=== PATIENT | male | born 1930 | race Caucasian/White ===

== ENCOUNTER → 2017-10-31 | Outpatient (CLI) | payer OTHER | END | disposition home or self-care (01) | LOC: ECHO 14:03 | DX: I25.110 Atherosclerotic heart disease of native coronary artery with unstable angina pectoris (principal); I08.0 Rheumatic disorders of both mitral and aortic valves | CPT/HCPCS: 93306 ==

== ENCOUNTER → 2017-11-07 | Outpatient (CLI) | payer OTHER ==
[~2017-11-07] MED LIST: 0.9 % SODIUM CHLORIDE 10 ML DISP.SYRIN. IV; ACETAMINOPHEN 325 MG TABLET. PO; ASPIRIN 325 MG TABLET; BIVALIRUDIN 250 MG VIAL. IV; CLOPIDOGREL BISULFATE 75 MG TABLET; HEPARIN for IV BOLUS 10,000 UNIT/10 ML VIAL.; IODIXANOL 320 MG/ML 100 ML VIAL.; IV 1/2 NORMAL SALINE 1,000 ML IV; LIDOCAINE 2% 20 ML VIAL.; MIDAZOLAM HCL/PF 2 MG/2 ML VIAL.; NITROGLYCERIN 200 MCG/2 ML SYRINGE FOR CATH/VASC LAB.; NITROGLYCERIN SUBLINGUAL 0.4 MG BOTTLE OF 25. SL; VERAPAMIL 5 MG/2 ML VIAL.; fentaNYL PF VIAL 100 MCG/2 ML VIAL
[2017-11-07 07:06] LABS: HEMATOCRIT 41.2 % (39.0-53.0); HEMOGLOBIN 13.9 g/dL (13.0-17.5); MEAN CORPUSCULAR HEMOGLOBIN 32 pg (25-35); MEAN CORPUSCULAR HGB CONC 34 g/dL (31-37); MEAN CORPUSCULAR VOLUME 95 fL (79-100); PLATELET COUNT 261 x10^3/uL (140-400); RED BLOOD COUNT 4.33 x10^6/uL (4.30-5.70); WHITE BLOOD COUNT 6.8 x10^3/uL (4.0-11.0)
[2017-11-07 07:14] LABS: PROTHROMBIN TIME PATIENT 12.9 SEC (11.7-14.0)
[2017-11-07 07:28] LABS: ANION GAP 9 (6-14); BLOOD UREA NITROGEN 27 mg/dL (8-26); CALCIUM 8.9 mg/dL (8.5-10.1); CARBON DIOXIDE 26 mmol/L (21-32); CHLORIDE 108 mmol/L (98-107); GFR 70.8; GLUCOSE 89 mg/dL (70-99); POTASSIUM 4.1 mmol/L (3.5-5.1); SODIUM 143 mmol/L (136-145)
[2017-11-07] MEDS: IODIXANOL 320 MG/ML 100 ML VIAL. IART (09:33)
[2017-11-07] MEDS: MIDAZOLAM HCL/PF 2 MG/2 ML VIAL. IV (09:34)
[2017-11-07] MEDS: BIVALIRUDIN 250 MG VIAL. IV (09:34)
[2017-11-07] MEDS: LIDOCAINE 2% 20 ML VIAL. IJ (09:34)
[2017-11-07] MEDS: VERAPAMIL 5 MG/2 ML VIAL. IART (09:34)
[2017-11-07] MEDS: ASPIRIN 325 MG TABLET PO (09:35)
[2017-11-07] MEDS: CLOPIDOGREL BISULFATE 75 MG TABLET PO (09:35)
[2017-11-07] MEDS: HEPARIN for IV BOLUS 10,000 UNIT/10 ML VIAL. IART (09:35)
[2017-11-07] MEDS: fentaNYL PF VIAL 100 MCG/2 ML VIAL IV (09:35)
[2017-11-07] MEDS: NITROGLYCERIN 200 MCG/2 ML SYRINGE FOR CATH/VASC LAB. IART (09:35)
== END | disposition home or self-care (01) ==
LOC: CCL 06:40
DX: I25.110 Atherosclerotic heart disease of native coronary artery with unstable angina pectoris (principal); Z79.82 Long term (current) use of aspirin; Z79.899 Other long term (current) drug therapy; I10 Essential (primary) hypertension; M19.90 Unspecified osteoarthritis, unspecified site; M10.9 Gout, unspecified; I47.1 Supraventricular tachycardia; E78.5 Hyperlipidemia, unspecified; Z98.890 Other specified postprocedural states; Z96.652 Presence of left artificial knee joint; Z96.642 Presence of left artificial hip joint; Z80.6 Family history of leukemia
CPT/HCPCS: 36415; 80048; 85027; 85610; 92928; 93458; 99152; 99153; C1769; C1874; C1892; C9600; J0583; J1644; J2250; J3010; J3490

== ENCOUNTER → 2020-04-14 | Outpatient (CLI) | payer MEDICARE ==
[2017-11-07 11:23] VITALS: BP 163/81
[~2020-04-14] MED LIST changes: -0.9 % SODIUM CHLORIDE 10 ML DISP.SYRIN. IV; -ACETAMINOPHEN 325 MG TABLET. PO; +ASPI-482 PO; -ASPIRIN 325 MG TABLET; +ATOR40TA59 PO; -BIVALIRUDIN 250 MG VIAL. IV; +CLOP75TA PO; -CLOPIDOGREL BISULFATE 75 MG TABLET; +GABA300C18 PO; -HEPARIN for IV BOLUS 10,000 UNIT/10 ML VIAL.; -IODIXANOL 320 MG/ML 100 ML VIAL.; -IV 1/2 NORMAL SALINE 1,000 ML IV; -LIDOCAINE 2% 20 ML VIAL.; +LISI-334 PO; +METO-269 PO; -MIDAZOLAM HCL/PF 2 MG/2 ML VIAL.; +NITR0.4T24 SL; -NITROGLYCERIN 200 MCG/2 ML SYRINGE FOR CATH/VASC LAB.; -NITROGLYCERIN SUBLINGUAL 0.4 MG BOTTLE OF 25. SL; +OMEP40CA45 PO; +REGADENOSON 0.4 MG/5 ML DISP.SYRIN. IV ONE; +TAMS0.4C97 PO; +TIZA4TAB2 PO; +TRAM50TA PO; -VERAPAMIL 5 MG/2 ML VIAL.; -fentaNYL PF VIAL 100 MCG/2 ML VIAL
--- NOTE | 2020-04-14 13:05 | CARD ---
MR#: [id number] Date of Study: 04/14/2020 Ordering Physician: SUSHIL SIMPSON, Referring Physician: SUSHIL SIMPSON, Tech: Jalyn Bryantbarbara APPROVED REPORT EXAM: Two-dimensional and M-mode echocardiogram with Doppler and color Doppler. Other Information Quality : AverageHR: 60bpm INDICATION Cardiac Disease: CAD RISK FACTORS Hypertension Hyperlipidemia Smoking 2D DIMENSIONS RVDd3.9 (2.9-3.5cm)Left Atrium(2D)3.4 (1.6-4.0cm) IVSd1.2 (0.7-1.1cm)Aortic Root(2D)3.2 (2.0-3.7cm) LVDd4.3 (3.9-5.9cm)LVOT Diameter2.2 (1.8-2.4cm) PWd1.1 (0.7-1.1cm)LVDs2.9 (2.5-4.0cm) FS (%) 33.4 %SV52.2 ml LVEF(%)62.3 (>50%) Aortic Valve AoV Peak Asaf.166.2cm/sAoV VTI41.6cm AO Peak GR.11.1mmHgLVOT Peak Asaf.68.7cm/s LVOT VTI 18.73cmAO Mean GR.7mmHg ANNA (VMAX)1.49sc2YOV (VTI)1.72cm2 AI P 1/2 Klaf314pm Mitral Valve MV E Hqbewsyt92.5cm/sMV DECEL GDSA866bw MV A Diqrpzsc525.8cm/sMV E Mean Gr.2mmHg MV WQB77fqC/A Ratio0.8 MVA (PHT)4.23cm2 TDI E/Lateral E'15.0E/Medial E'16.2 Pulmonary Valve PV Peak Ianyenbz65.9cm/sPV Peak Grad.3mmHg Tricuspid Valve TR P. Juwrqbpa277cv/sRAP LMXSNMCU8ywOi TR Peak Gr.24tbDmAPZL63fjGy Pulmonary Vein S1 Hlhmsich98.1cm/sD2 Honoqdrm23.5cm/s LEFT VENTRICLE The left ventricle is normal size. There is mild concentric left ventricular hypertrophy. The left ve ntricular systolic function is normal and the ejection fraction is within normal range. The Ejection Fraction is 55%. There is normal LV segmental wall motion. Transmitral Doppler flow pattern is Grade I-abnormal relaxation pattern. RIGHT VENTRICLE The right ventricle is normal size. There is normal right ventricular wall thickness. The right ventr icular systolic function is normal. ATRIA The left atrium size is normal. The right atrium size is normal. The interatrial septum is intact wit h no evidence for an atrial septal defect or patent foramen ovale as noted on 2-D or Doppler imaging. AORTIC VALVE The aortic valve is heavily calcified thickened with restricted leaflet motion. Doppler and Color Bandar w revealed mild aortic regurgitation. Calculated aortic valve area is 1.87 cm2 with maximum pressure gradient of 12 mmHg and mean pressure gradient of 7 mmHg. There is no significant aortic valvular macie nosis. MITRAL VALVE The mitral valve is thickened but opens well. There is no evidence of mitral valve prolapse. There is no mitral valve stenosis. Doppler and Color-flow revealed trace mitral regurgitation. TRICUSPID VALVE The tricuspid valve is normal in structure and function. Doppler and Color Flow revealed trace tricus pid regurgitation with an estimated PAP of 29 mmHg. There is no tricuspid valve stenosis. PULMONIC VALVE The pulmonic valve is not well visualized. Doppler and Color Flow revealed trace to mild pulmonic bj vular regurgitation. There is no pulmonic valvular stenosis. GREAT VESSELS The aortic root is normal in size. The ascending aorta is normal in size. The IVC is normal in size a nd collapses >50% with inspiration. PERICARDIAL EFFUSION There is no evidence of significant pericardial effusion. Critical Notification Critical Value: No <Conclusion> The left ventricular systolic function is normal and the ejection fraction is within normal range. Th e Ejection Fraction is 55%. There is normal LV segmental wall motion. Doppler and Color Flow revealed mild aortic regurgitation. Signed by : Morteza Hahn, Electronically Approved : 04/14/2020 13:04:57
--- NOTE | 2020-04-14 13:42 | RAD ---
MR#: [id number] Date of Study: 04/14/2020 Ordering Physician: SUSHIL SIPMSON, Referring Physician: MADAY AGUIRRE Tech: LUDWIG Potter APPROVED REPORT Test Type: Pharmacological Stress Nurse/Tech: LEXY DAY Test Indications: CAD Cardiac History: HTN, STENTS X 2, SEE EMR Medications: SEE EMR Medical History: SEE EMR Resting ECG: SB W/ 1ST DEGREE AVB Resting Heart Rate: 57 bpm Resting Blood Pressure: 194/84mmHg Nurse/Tech Notes S1,S2, LUNGS CTA, DENIED CP OR SOA. Consent: The procedure was explained to the patient in lay terms. Informed consent was witnessed. Dimitris eout was entered into [employer]. History and Stress Test performed by LUDWIG Potter Pharm. Details Pharmacologic stress testing was performed using 0.4mg per 5ml of regadenoson given intravenously ove r 7-10 seconds. Stress Symptoms PT TOLERATED TEST WITHOUT ANY COMPLAINTS. VSS. DENIED SOA OR CP DURING EXAM. POST EXERCISE Reason for Termination: Infusion complete Max HR: 78 bpm Max Blood Pressure: 178/64mmHg Blood Pressure response to exercise: Normal blood pressure response during stress. Heart Rate response to exercise: NORMAL HEART RATE RESPONSE DURING STRESS. Chest Pain: No. Arrhythmia: No. ST Change: No. INTERPRETATION Stress EKG Conclusion: No evidence of stress induced EKG changes. Imaging Protocol IMAGE PROTOCOL: Rest Tc-99m/stress Tc-99m 1 day Rest: Stress: Viability: Radiopharm.Tc99m ThmhrtugeAn94p Sestamibi Qqty64qDm 32.7mCi Duration 15min. 10min. Img Date 04/14/2020 04/14/2020 Inj-Img Jclv23pif. 60min. Rest Admin Site:IV - Right AntecubitalAdministrator:LUDWIG Potter Stress Admin Site: IV - Right AntecubitalAdministrator: LUDWIG Potter STRESS DATA End Diast. Vol.93.0mlAv. Heart Rate69.0bpm End Syst. Vol.11.0mlCO Index BSA5.6L/min Myocardial Xpno868.0gEject. Buzaayhv15.0% Stress Rates Pk. Fill Rate2.39EDV/secLVtime Pk. Fill 130.11msec Pk. Empty Rate3.77ESV/secLVtime Pk. Abiks849.80msec 1/3 Pk. Fill1.41EDV/sec Stress Scores Regional WT0.00Summed WT2.00 Regional WM0.00Summed WM0.00 The rest and stress images show normal perfusion, normal contraction and thickening. LV Perf. Quant 17 Seg. SSS0.00 17 Seg. SRS0.00 17 Seg. SDS0.00 Stress Defect Extent (% LAD)0.00Rest Defect Extent (% LAD)0.00Rev. Defect Extent (% LAD)0.00 Stress Defect Extent (% LCX) 0.00Rest Defect Extent (% LCX)0.00Rev. Defect Extent (% LCX)0.00 Stress Defect Extent (% RCA)0.00Rest Defect Extent (% RCA)0.00Rev. Defect Extent (% RCA)0.00 Stress Defect Extent (% MIS)0.00Rest Defect Extent (% MIS)0.00Rev. Defect Extent (% MIS)0.00 Other Information Quality:Good Risk Assessment: Low Risk Conclusion 1. No evidence of EKG changes with stress testing. 2. Normal perfusion at stress/rest. 3. Low risk study. 4. EF > 60%. Signed by : Morteza Hahn, Electronically Approved : 04/14/2020 13:41:53
== END | disposition home or self-care (01) ==
LOC: NM 09:31
PROVIDERS: ATTEND Internal Medicine Cardiovascular Disease
DX: I08.8 Other rheumatic multiple valve diseases (principal); I25.10 Atherosclerotic heart disease of native coronary artery without angina pectoris; I10 Essential (primary) hypertension; Z95.5 Presence of coronary angioplasty implant and graft
CPT/HCPCS: 78452; 93017; 93306; A9500; J2785

== ENCOUNTER → 2020-07-27 | Outpatient (CLI) | payer MEDICARE ==
[2017-11-07 11:23] VITALS: BP 163/81
[~2020-07-27] MED LIST changes: -LISI-334 PO; +LISI20TA18 PO; -OMEP40CA45 PO; +OMEP40CA7 PO; -REGADENOSON 0.4 MG/5 ML DISP.SYRIN. IV ONE
--- NOTE | 2020-07-28 00:11 | KCIC ---
EXAM: AP pelvis, AP and lateral views left hip DATE: 07/27/2020 3:51 PM INDICATION: Left side LBP, Left hip pain a few days. Unable to bear weight. COMPARISON: No Prior FINDINGS: Marked osteopenia. Changes of right total hip arthroplasty, in good alignment without definite hardwa re complication or fracture. Left hip joint space is preserved. Chondrocalcinosis. No acute fracture or dislocation. Formerly of the left inferior pubic ramus likely from old fracture. Osteopenia. Vance ectomy changes lower lumbar spine with underlying lumbar spine degenerative change. SI joint degenera tive change. Vascular calcifications are seen. IMPRESSION: 1. Within the constraints of osteopenia, no evidence for acute fracture or dislocation. There is per sistent clinical concern for fracture, MRI is recommended. 2. Multifocal degenerative changes are seen, most prominent SI joints and lower lumbar spine 3. Chondrocalcinosis left hip Electronically signed by: Stevenson Hernandez MD (07/28/2020 12:09 AM) TATIANA
--- NOTE | 2020-07-28 14:11 | KCIC ---
EXAMINATION: XR LUMBAR SPINE 2-3V CLINICAL HISTORY: Left-sided low back pain, Left hip pain a few days. Unable to bear weight TECHNIQUE: XR LUMBAR SPINE 2-3V Number of Images/Views: 2 COMPARISON: None FINDINGS: Levoconvex curvature of the lumbar spine. No evidence of acute fracture or spondylolisthesis. Marked multilevel degenerative disc disease. L3-5 laminectomies. Degenerative changes of the SI joint s. Partially visualized right total hip arthroplasty. Vascular calcifications. IMPRESSION: Levoscoliotic curvature and marked multilevel degenerative disc disease. Electronically signed by: Baltazar Canada DO (07/28/2020 2:09 PM) [id number]
== END ==
LOC: KCIC 15:44
PROVIDERS: ATTEND Nurse Practitioner Gerontology
DX: M11.252 Other chondrocalcinosis, left hip (principal); M47.817 Spondylosis without myelopathy or radiculopathy, lumbosacral region; M85.88 Other specified disorders of bone density and structure, other site; I70.90 Unspecified atherosclerosis; M51.36 Other intervertebral disc degeneration, lumbar region; Z96.641 Presence of right artificial hip joint
CPT/HCPCS: 72100; 73502

== ENCOUNTER → 2020-08-03 | Outpatient (CLI) | payer MEDICARE ==
[2017-11-07 11:23] VITALS: BP 163/81
--- NOTE | 2020-08-03 13:21 | KCIC ---
MRI of the lumbar spine without contrast 08/03/2020 CLINICAL HISTORY: Low back pain which radiates down the left hip. TECHNIQUE: Unenhanced T1-weighted and T2-weighted sagittal and axial and inversion recovery sagittal images of the lumbar spine were obtained. FINDINGS: Comparison is made to radiographs of the lumbar spine dated 07/27/2020. Mild to moderate S-shaped curvature of the thoracolumbar spine is seen. Degenerative signal changes a nd loss of height are seen involving all the disks of the lumbar spine. Degenerative signal changes a re seen within the marrow surrounding these discs. The conus medullaris is normal in position and sig nal characteristics. At the T10-11 disc space there is a mild generalized disc bulge. Degenerative changes are seen involv ing the facet joints bilaterally. These findings result in mild central spinal canal stenosis without evidence of cord impingement. Mild bilateral neural foraminal stenosis is seen. At the T11-12 disc space there is a mild generalized disc bulge. This is eccentric to the left. Degen erative changes are seen involving the facet joints bilaterally. There are small facet joint effusion s bilaterally. These findings when combined result in mild central spinal canal stenosis without evid ence of cord impingement. Mild left neural foraminal stenosis is seen. The right neural foramen is pa tent. At the T12-L1 disc space there is a mild generalized disc bulge. Degenerative changes are seen involv ing the facet joints bilaterally. There are small facet joint effusions bilaterally. There is mild to moderate ligamentum flavum hypertrophy bilaterally. These findings when combined do not result in si gnificant central spinal canal or neural foraminal stenosis. At the L1-2 disc space there is a mild generalized disc bulge which is eccentric to the left. Degener ative changes are seen involving the facet joints bilaterally. There is moderate ligamentum flavum hy pertrophy bilaterally. There are small facet joint effusions bilaterally. These findings when combine d with prominence of posterior epidural fat result in mild to moderate left greater than right centra l spinal canal stenosis. Mild to moderate left neural foraminal stenosis is seen. The right neural fo ramen is patent. At the L2-3 disc space there is a moderate generalized disc bulge. Degenerative changes are seen invo lving the facet joints bilaterally. There is moderate ligamentum flavum hypertrophy bilaterally. Ther e are small facet joint effusions bilaterally. There is prominence of the posterior epidural fat. The se findings when combined result in moderate to severe central spinal canal stenosis. Mild bilateral neural foraminal stenosis is seen. At the L3-4 disc space, the patient is post laminectomy. There is a mild to moderate generalized disc bulge. This is eccentric to the right. Degenerative changes are seen involving the facet joints bila terally. These findings do not result in significant central spinal canal stenosis. Mild right neural foraminal stenosis is seen. The left neural foramen is patent. At the L4-5 disc space, the patient is post laminectomy. There is mild generalized disc bulge. Degene rative changes are seen involving the facet joints bilaterally. These findings do not result in signi ficant central spinal canal or neural foraminal stenosis. At the L5-S1 disc space the patient is post laminectomy. There is a mild generalized disc bulge. Dege nerative changes are seen involving the facet joints bilaterally. These findings do not result in sig nificant central spinal canal stenosis. No neural foraminal stenosis is seen. IMPRESSION: 1. Post laminectomy at L3-4, L4-5 and L5-S1. 2. Degenerative changes are seen throughout the lower thoracic and throughout the lumbar disc spaces. These findings results in mild central spinal canal stenosis at T10-11 and T11-12, mild to moderate left greater than right central spinal canal stenosis at L1-2 and moderate to severe central spinal c anal stenosis at L2-3. Mild bilateral neural foraminal stenosis is seen at T10-11 and L2-3. Mild left neural foraminal stenosis is seen at T11-12. Mild to moderate left neural foraminal stenosis is seen at L1-2. Mild right neural foraminal stenosis is seen at L3-4. Electronically signed by: Kishor Kim MD (08/03/2020 1:19 PM) [id number]
== END ==
LOC: KCIC MRI 10:07
PROVIDERS: ATTEND Nurse Practitioner Gerontology
DX: M47.816 Spondylosis without myelopathy or radiculopathy, lumbar region (principal); M48.061 Spinal stenosis, lumbar region without neurogenic claudication; M54.42 Lumbago with sciatica, left side; M47.26 Other spondylosis with radiculopathy, lumbar region; M41.9 Scoliosis, unspecified
CPT/HCPCS: 72148

== ENCOUNTER → 2021-03-02 | Outpatient (CLI) | payer MEDICARE ==
[2017-11-07 11:23] VITALS: BP 163/81
--- NOTE | 2021-03-02 17:42 | CARD ---
MR#: [id number] Date of Study: 03/02/2021 Ordering Physician: SUSHIL SIMPSON, Referring Physician: SUSHIL SIMPSON Tech: Nia Bae [facility] APPROVED REPORT EXAM: Two-dimensional and M-mode echocardiogram with Doppler and color Doppler. Other Information Quality : AverageHR: 57bpm Rhythm : NSR INDICATION Cardiac Disease: RISK FACTORS Hypertension 2D DIMENSIONS RVDd3.4 (2.9-3.5cm)Left Atrium(2D)3.3 (1.6-4.0cm) IVSd1.4 (0.7-1.1cm)Aortic Root(2D)3.7 (2.0-3.7cm) LVDd3.5 (3.9-5.9cm)LVOT Diameter2.3 (1.8-2.4cm) PWd1.3 (0.7-1.1cm)LVDs2.2 (2.5-4.0cm) FS (%) 37.5 %SV34.6 ml Aortic Valve AoV Peak Asaf.216.6cm/sAoV VTI44.7cm AO Peak GR.18.8mmHgLVOT Peak Asaf.93.7cm/s AO Mean GR.10mmHgAVA (VMAX)1.86cm2 AI P 1/2 Egue480oy Mitral Valve MV E Dqogumzy49.9cm/sMV DECEL SCEM981ts MV A Layiufwp35.0cm/sE/A Ratio0.6 Pulmonary Valve PV Peak Eyrgstmi395.4cm/s Tricuspid Valve TR P. Eikgtgfc008wi/sTR Peak Gr.29mmHg LEFT VENTRICLE The left ventricle is normal size. There is mild concentric left ventricular hypertrophy. The left ve ntricular systolic function is normal and the ejection fraction is within normal range. Estimated ej ection fraction 55-60%. There is normal LV segmental wall motion. Transmitral Doppler flow pattern is Grade I-abnormal relaxation pattern. RIGHT VENTRICLE The right ventricle is normal size. There is normal right ventricular wall thickness. The right ventr icular systolic function is normal. ATRIA The left atrium size is normal. The right atrium size is normal. The interatrial septum is intact wit h no evidence for an atrial septal defect or patent foramen ovale as noted on 2-D or Doppler imaging. AORTIC VALVE The aortic valve is calcified but opens well. Doppler and Color Flow revealed mild aortic regurgitati on. There is trace valvular aortic stenosis. MITRAL VALVE The mitral valve is normal in structure and function. There is no evidence of mitral valve prolapse. There is no mitral valve stenosis. Doppler and Color Flow revealed no mitral valve regurgitation note d. TRICUSPID VALVE The tricuspid valve is normal in structure and function. Doppler and Color Flow revealed trace tricus pid regurgitation. Estimated PAP 32-35 mmHg. There is no tricuspid valve stenosis. PULMONIC VALVE The pulmonary valve is normal in structure and function. GREAT VESSELS The aortic root is normal in size. The ascending aorta is normal in size. The IVC is normal in size a nd collapses >50% with inspiration. PERICARDIAL EFFUSION There is no evidence of significant pericardial effusion. Critical Notification Critical Value: No <Conclusion> The left ventricle is normal size. The left ventricular systolic function is normal and the ejection fraction is within normal range. Estimated ejection fraction 55-60%. There is normal LV segmental wall motion. There is mild concentric left ventricular hypertrophy. Doppler and Color Flow revealed mild aortic regurgitation. There is trace valvular aortic stenosis. Doppler and Color Flow revealed no mitral valve regurgitation noted. Doppler and Color Flow revealed trace tricuspid regurgitation. Estimated PAP 32-35 mmHg. Signed by : Michael Moreno MD Electronically Approved : 03/02/2021 17:42:07
== END ==
LOC: ECHO 10:46
PROVIDERS: ATTEND Internal Medicine Cardiovascular Disease
DX: I06.1 Rheumatic aortic insufficiency (principal); I25.110 Atherosclerotic heart disease of native coronary artery with unstable angina pectoris; I11.9 Hypertensive heart disease without heart failure
CPT/HCPCS: 93306